=== PATIENT | female | born 1965 | race Caucasian/White ===

== ENCOUNTER → 2021-11-02 | Outpatient (CLI) | payer OTHER ==
--- NOTE | 2021-11-02 11:39 | RAD ---
EXAMINATION: XR KNEE_LT 1-2 VIEWS CLINICAL HISTORY: Left knee pain. TECHNIQUE: XR KNEE_LT 1-2 VIEWS Number of Images/Views: 2 COMPARISON: None FINDINGS: Moderate medial compartment narrowing. Narrowing in the patellofemoral compartment, incompletely eval uated. No acute fracture. Small patellar enthesophytes. Small enthesophyte at the tibial tuberosity. No joint effusion. IMPRESSION: Moderate degenerative changes left knee medial compartment. Electronically signed by: Gabriele Tello DO (11/02/2021 11:37 AM) [id number]
== END ==
LOC: RAD 09:32
PROVIDERS: ATTEND Anesthesiology Pain Medicine
DX: Z02.71 Encounter for disability determination (principal); M17.12 Unilateral primary osteoarthritis, left knee; M76.892 Other specified enthesopathies of left lower limb, excluding foot; M25.862 Other specified joint disorders, left knee
CPT/HCPCS: 73560